=== PATIENT | female | born 1990 | race Caucasian/White ===

== ENCOUNTER 2023-07-22 16:44 | Emergency (ER) | payer SELFPAY ==
[~2023-07-22] VITALS: Ht 152.4 cm; Wt 52.0 kg
[2023-07-22 17:42] VITALS: TEMP 98.6
[2023-07-22 19:02] VITALS: BP 118/70; PULSE 97; RESP 18; O2SAT 99
== END 2023-07-22 20:42 ==
LOC: ER 16:45
DX: Z02.89 Encounter for other administrative examinations (principal); V87.7XXA Person injured in collision between other specified motor vehicles (traffic), initial encounter; Y93.89 Activity, other specified; Y92.488 Other paved roadways as the place of occurrence of the external cause; Y99.8 Other external cause status
CPT/HCPCS: 99283

== ENCOUNTER 2024-08-29 23:07 | Emergency (ER) | payer SELFPAY ==
[2024-08-30] MEDS ORDERED: CHLO25CA10 PO (15:45)
== END 2024-08-30 00:52 | disposition left against medical advice (07) ==
LOC: ER 23:08 → EEVIPCON 23:08 → ER 08-30 00:52
DX: F10.90 Alcohol use, unspecified, uncomplicated (principal); Z53.21 Procedure and treatment not carried out due to patient leaving prior to being seen by health care provider; Y90.9 Presence of alcohol in blood, level not specified

== ENCOUNTER 2024-08-30 11:18 | Emergency (ER) | payer BC ==
[~2024-08-30] VITALS: Ht 152.4 cm; Wt 52.3 kg
[2024-08-30] MEDS: chlordiazePOXIDE 25mg capsule PO ONE (13:56)
[2024-08-30] MEDS ORDERED: CHLO25CA10 PO (15:45)
[2024-08-30 15:48] VITALS: BP 133/90; PULSE 99; RESP 16; O2SAT 98
[2024-08-30 16:33] VITALS: TEMP 97.8
== END 2024-08-30 16:13 | disposition home or self-care (01) ==
LOC: ER 11:18 → EEVIPCON 11:18 → ER 16:13
DX: F10.239 Alcohol dependence with withdrawal, unspecified (principal); F10.229 Alcohol dependence with intoxication, unspecified; F41.9 Anxiety disorder, unspecified; F32.A Depression, unspecified
CPT/HCPCS: 99285

== ENCOUNTER 2024-11-10 23:48 | Emergency (ER) | payer BC ==
[~2024-11-10] VITALS: Ht 152.4 cm; Wt 55.9 kg
[~2024-11-10 23:48] MED LIST: CHLO25CA10 PO
[2024-11-11] MEDS ORDERED: LIDOcaine 1% W/epiNEPHrine 1:200,000 10ml vial IJ ONE
[2024-11-11] MEDS: bacitracin 15gm ointment TP ONE
[2024-11-11] MEDS: TETanus/Pertussis (Acell)/Diphther VAC/PF (Tdap-Adult) 0.5ml syringe IMVAC ONE (00:16)
[2024-11-11] MEDS: LIDOcaine 1% W/epiNEPHrine 1:100,000 20ml vial IJ ONE (00:17)
[2024-11-11 00:41] LABS: BASOPHILS % (AUTO) 0.4 % (0-1); EOSINOPHILS % (AUTO) 0.5 % (0-6); HEMOGLOBIN 15.2 g/dl (12.0-16.0); LYMPHOCYTES # (AUTO) 1.3 X10'3 (1.1-4.8); LYMPHOCYTES % (AUTO) 25.5 % (21-51); MEAN CORPUSCULAR HEMOGLOBIN 32.1 PG (27.0-31.0); MEAN CORPUSCULAR HGB CONC 33.8 g/dL (33.0-36.5); MEAN CORPUSCULAR VOLUME 94.8 FL (78-98); MEAN PLATELET VOLUME 7.9 FL (7.4-10.4); MONOCYTES # (AUTO) 0.3 X10'3 (0-0.9); MONOCYTES % (AUTO) 5.1 % (2-12); NEUTROPHILS # (AUTO) 3.6 X10'3 (1.8-7.7); NEUTROPHILS % (AUTO) 68.5 % (42-75); PLATELET COUNT 145 X10'3 (140-440); RED BLOOD COUNT 4.75 X10'6 (4.20-5.60); RED CELL DISTRIBUTION WIDTH 15.3 % (11.5-14.5); WHITE BLOOD COUNT 5.2 X10'3 (4.5-11.0)
[2024-11-11 01:02] LABS: ALBUMIN 4.4 G/DL (3.4-5.0); ANION GAP 10 (8-16); BLOOD UREA NITROGEN 8 MG/DL (7-18); CALCIUM 8.5 MG/DL (8.5-10.1); CHLORIDE 103 MMOL/L (99-107); CREATININE 0.57 MG/DL (0.40-0.90); GLUCOSE 100 MG/DL (70-104); SODIUM 142 MMOL/L (135-145); TOTAL CARBON DIOXIDE 28.9 MMOL/L (24-32); eCRCL 98 ML/MIN; eGFR > 90 ML/MIN
[2024-11-11 01:05] LABS: ETHANOL 327 MG/DL (<10); POTASSIUM 4.1 MMOL/L (3.5-5.1)
[2024-11-11] MEDS ORDERED: DEXT20TA6 PO (02:50)
[2024-11-11] MEDS ORDERED: ACAM333T8 PO (02:50)
[2024-11-11 06:48] LABS: URINE HCG NEGATIVE (NEG)
[2024-11-11] MEDS ORDERED: QUET100T34 PO (06:59)
[2024-11-11 07:00] LABS: BILIRUBIN,URINE NEGATIVE (Neg); COLOR,URINE YELLOW (Yellow); GLUCOSE, URINE NEGATIVE (Neg); KETONES,URINE TRACE mg/dl (Neg); LEUKOCYTE ESTERASE ,URINE NEGATIVE (Neg); NITRITES, URINE NEGATIVE (Neg); OCCULT BLOOD,URINE TRACE-INTACT (Neg); PROTEIN,URINE 100 mg/dl (Neg); UROBILINOGEN,URINE 0.2 E.U/dL (0.2-1.0)
[2024-11-11 07:10] LABS: URINE AMPHETAMINE SCREEN POSITIVE (Neg); URINE BARBITUATE SCREEN NEGATIVE (Neg); URINE BENZODIAZEPINES SCREEN NEGATIVE (Neg); URINE CANNABINOID SCREEN NEGATIVE (Neg); URINE COCAINE SCREEN NEGATIVE (Neg); URINE METHADONE SCREEN NEGATIVE (Neg); URINE OPIATE SCREEN NEGATIVE (Neg); URINE PHENCYCLIDINE SCREEN NEGATIVE (Neg)
[2024-11-11 07:11] LABS: UA COLLECTION TYPE VOIDED
[2024-11-11 07:12] LABS: CLARITY,URINE SLIGHTLY CLOUDY (Clear)
[2024-11-11 07:13] LABS: BACTERIA,URINE FEW /HPF (Neg); FINE GRANULAR CAST 0-3 /LPF (NEGATIVE); RBC,URINE 0-2 /HPF (0-2); SQUAMOUS EPITHELIAL CELL,UR FEW /LPF (FEW); WBC,URINE 0-4 /HPF (0-4)
[2024-11-11] MEDS: dextroamphetamine/amphetamine 5mg tablet PO SCH (07:25)
[2024-11-11] MEDS: HYDROcodone/acetaminophen 5mg/325mg tablet PO ONE (07:28)
[2024-11-11 07:46] VITALS: BP 142/80; PULSE 86; O2SAT 98
[2024-11-11 08:28] VITALS: RESP 16
[2024-11-11] MEDS ORDERED: DIAZ-351 PO (12:16)
[2024-11-11 12:58] VITALS: TEMP 97.9
[2024-11-11] MEDS ORDERED: quetiapine 100mg tablet PO SCH (21:00)
== END 2024-11-11 12:51 | disposition home or self-care (01) ==
LOC: EEVIPCON 23:49 → ER 23:49
DX: S51.811A Laceration without foreign body of right forearm, initial encounter (principal); Z20.822 Contact with and (suspected) exposure to COVID-19; R45.851 Suicidal ideations; F10.129 Alcohol abuse with intoxication, unspecified; Y90.9 Presence of alcohol in blood, level not specified; X83.8XXA Intentional self-harm by other specified means, initial encounter; Y93.89 Activity, other specified; Y92.89 Other specified places as the place of occurrence of the external cause; Y99.8 Other external cause status
CPT/HCPCS: 12002; 36415; 80048; 80305; 80320; 81001; 81025; 84443; 85025; 87811; 90471; 90715; 99285; J3490; J7030; A6402; A6449